=== PATIENT | male | born 2000 | race Caucasian/White ===

== ENCOUNTER 2022-08-02 15:38 | Emergency (ER) | payer OTHER, SELFPAY ==
[2022-08-02 15:45] VITALS: BP 133/73; PULSE 73; RESP 18; TEMP 37.1; O2SAT 99; BMI 27.8
--- NOTE | 2022-08-02 17:02 | CTR_ITS ---
PROCEDURE INFORMATION: Exam: CT Head Without Contrast Exam date and time: 08/02/2022 6:38 PM Age: 22 years old Clinical indication: Injury or trauma; Blunt trauma (contusions or hematomas); Without loss of consciousness; Injury details: Reports yesterday was climbing a tree yesterday and a branch broke, causing him to fall around 15-20 ft. PT landed on back. PT reports he lost his vision for a second but returned, otherwise denies loc, and initially had numbness to bilat fingertips hand fingers on right hand went blue. C/O pain to back, right shoulder, and neck, worse with movement. TECHNIQUE: Imaging protocol: Computed tomography of the head without contrast. Sagittal and coronal reformatted images were created and reviewed. Radiation optimization: All CT scans at this facility use at least one of these dose optimization techniques: automated exposure control; mA and/or kV adjustment per patient size (includes targeted exams where dose is matched to clinical indication); or iterative reconstruction. COMPARISON: No relevant prior studies available. RADIATION DOSE METRICS: Total DLP (mGy-cm): 1267.01 FINDINGS: Brain: No acute intracranial hemorrhage. No acute infarct. No intra-axial or extra-axial masses. No midline shift. No extra-axial fluid collections. Leavitt-white matter differentiation is unremarkable. No evidence for Chiari 1 malformation. Incidental note of a lola cisterna magna. Cerebral ventricles: No hydrocephalus. Incidental note of a cavum septum pellucidum and cavum septum vergae. Paranasal sinuses: Visualized paranasal sinuses are clear. Mastoid air cells: Visualized mastoid air cells are clear. Orbital cavities: Globes and lenses, extraocular muscles, and optic nerves are intact bilaterally. No acute intraorbital abnormality. Bones/joints: No acute fracture. Soft tissues: The extracranial soft tissues are unremarkable. CT/CT head wo con* [id number] IMPRESSION: 1. No acute abnormality of the brain. 2. Incidental/nonacute findings are listed in the report.
--- NOTE | 2022-08-02 17:02 | CTR_ITS ---
PROCEDURE INFORMATION: Exam: CT Chest With Contrast; Diagnostic Exam date and time: 08/02/2022 6:43 PM Age: 22 years old Clinical indication: Injury or trauma; Generalized; Blunt trauma (contusions or hematomas); Injury details: Reports yesterday was climbing a tree yesterday and a branch broke, causing him to fall around 15-20 ft. PT landed on back. PT reports he lost his vision for a second but returned, otherwise denies loc, and initially had numbness to bilat fingertips hand fingers on right hand went blue. C/O pain to back, right shoulder, middle finger of right hand, and neck, worse with movement. TECHNIQUE: Imaging protocol: Diagnostic computed tomography of the chest with contrast. Radiation optimization: All CT scans at this facility use at least one of these dose optimization techniques: automated exposure control; mA and/or kV adjustment per patient size (includes targeted exams where dose is matched to clinical indication); or iterative reconstruction. Contrast material: OMNI 350; Contrast volume: 100 ml; Contrast route: INTRAVENOUS (IV); COMPARISON: CT cervical spin wo con* [id number] 08/02/2022 6:40 PM RADIATION DOSE METRICS: Total DLP (mGy-cm): 1173.37 FINDINGS: Lungs: Unremarkable. No consolidation. No masses. Pleural spaces: Unremarkable. No pneumothorax. No pleural effusion. Heart: Unremarkable. No cardiomegaly. No pericardial effusion. Lymph nodes: Unremarkable. No enlarged lymph nodes. Vasculature: Unremarkable. No aortic aneurysm. Bones/joints: There is posterior displacement/subluxation of the right humeral head in relation to the glenoid fossa. There is no lv dislocation. Remaining osseous structures are unremarkable. There is no fracture detected. Soft tissues: Unremarkable. PROCEDURE INFORMATION: Exam: CT Abdomen And Pelvis With Contrast Exam date and time: 08/02/2022 6:43 PM Age: 22 years old Clinical indication: Injury or trauma; Generalized; Blunt trauma (contusions or hematomas); Injury details: Reports yesterday was climbing a tree yesterday and a branch broke, causing him to fall around 15-20 ft. PT landed on back. PT reports he lost his vision for a second but returned, otherwise denies loc, and initially had numbness to bilat fingertips hand fingers on right hand went blue. C/O pain to back, right shoulder, middle finger of right hand, and neck, worse with movement. TECHNIQUE: Imaging protocol: Computed tomography of the abdomen and pelvis with contrast. Radiation optimization: All CT scans at this facility use at least one of these dose optimization techniques: automated exposure control; mA and/or kV adjustment per patient size (includes targeted exams where dose is matched to clinical indication); or iterative reconstruction. Contrast material: OMNI 350; Contrast volume: 100 ml; Contrast route: INTRAVENOUS (IV); COMPARISON: CT abdomen pelvis w con* [id number] 08/27/2016 8:57 AM RADIATION DOSE METRICS: Total DLP (mGy-cm): 1173.37 FINDINGS: Lungs: Lung bases are clear. Liver: Normal. No mass. Gallbladder and bile ducts: Normal. No calcified stones. No ductal dilation. Pancreas: Normal. No ductal dilation. Spleen: Normal. No splenomegaly. Adrenal glands: Normal. No mass. Kidneys and ureters: Normal. No hydronephrosis. Stomach and bowel: Unremarkable. No obstruction. No mucosal thickening. Appendix: The appendix has been removed. Intraperitoneal space: Unremarkable. No free air. No significant fluid collection. Vasculature: Unremarkable. No abdominal aortic aneurysm. Lymph nodes: Unremarkable. No enlarged lymph nodes. Urinary bladder: Unremarkable as visualized. Reproductive: Unremarkable as visualized. Bones/joints: Unremarkable. No acute fracture. Soft tissues: Unremarkable. CT/CT chest abd pel w con* IMPRESSION: Posterior subluxation right shoulder which in view of patient's history is presumed posttraumatic in nature and raises possibility of underlying internal derangement which could be further assessed on MRI examination of the right shoulder. IMPRESSION: No acute findings within the abdomen or pelvis.
--- NOTE | 2022-08-02 17:02 | CTR_ITS ---
PROCEDURE INFORMATION: Exam: CT Cervical Spine Without Contrast Exam date and time: 08/02/2022 6:40 PM Age: 22 years old Clinical indication: Injury or trauma; Blunt trauma; Injury details: Reports yesterday was climbing a tree yesterday and a branch broke, causing him to fall around 15-20 ft. PT landed on back. PT reports he lost his vision for a second but returned, otherwise denies loc, and initially had numbness to bilat fingertips hand fingers on right hand went blue. C/O pain to back, right shoulder, middle finger of right hand, and neck, worse with movement. TECHNIQUE: Imaging protocol: Computed tomography of the cervical spine without contrast. Sagittal and coronal reformatted images were created and reviewed. Radiation optimization: All CT scans at this facility use at least one of these dose optimization techniques: automated exposure control; mA and/or kV adjustment per patient size (includes targeted exams where dose is matched to clinical indication); or iterative reconstruction. COMPARISON: No relevant prior studies available. RADIATION DOSE METRICS: Total DLP (mGy-cm): 569.97 FINDINGS: Bones/joints: Vertebral body height is maintained. No subluxation. Normal bone mineralization. Reversal of normal cervical lordosis. No evidence for an epidural hematoma. No acute fracture. Lungs: Visualized lungs are clear. Soft tissues: No soft tissue swelling. No radiopaque foreign body. CT/CT cervical spin wo con* [id number] IMPRESSION: 1. No acute fracture of the cervical spine. 2. Incidental/nonacute findings are listed in the report.
--- NOTE | 2022-08-02 17:13 | ED_ITS ---
Documented by User: Pee Maldonado DO 08/02/22 17:58 HPI - Trauma General: Chief Complaint: Trauma Stated Complaint: fell out of tree Time Seen by Provider: 08/02/22 16:49 History of Present Illness: 22-year-old male presents emergency room after falling out of a tree nearly 24 hours ago. He estimates he fell 15 to 20 feet landed on his back he says he briefly lost his vision but did not resolved. No real loss of consciousness. He had some numbness bilaterally to his fingers and he states his fingers went below he is complaining mostly of back pain right shoulder pain right third finger pain and neck pain. He has an abrasion to his right ankle. He has been ambulatory today has been very stiff. MD complaint: fall Onset (ago): day(s) (1) Loss of Consciousness: no Location: head and back Location - Extremities: Right: shoulder and hand Severity: moderate Context: fall (Proximal fall 15 to 20 feet out of a tree landing on his back he did break his fall and of the limbs as he fell) Associated symptoms: Reports back pain; Denies abdominal pain, anorexia, chest pain, chills, confusion, cough, dental pain, diaphoresis, difficulty breathing, dizziness, epistaxis, fever(s), headache(s), nausea, seizures, short of breath, syncope, visual disturbances, vomiting or weakness Review of Systems Const: Reports: body aches; Denies: fever(s), chills or diaphoresis ENMT: Denies: dental pain or epistaxis Card: Denies: chest pain or syncope Resp: Denies: dyspnea, productive cough or non-productive cough GI: Denies: abdominal pain, nausea or vomiting : Denies: flank pain, dysuria, urinary frequency or urinary urgency Musc: Reports: back pain and extremity pain Skin/Breast: Denies: rash or pruritus Neuro: Denies: headache(s), dizziness or confusion PFS ED PFSH: Medical History (Updated 08/02/22 @ 20:11 by Scooter Whitten DO) No significant past medical history Surgical History (Updated 08/02/22 @ 17:51 by Pee Maldonado DO) No pertinent past surgical history Physical Exam Const: COMMON NORMALS: no acute distress GENERAL APPEARANCE: cooperative and comfortable ORIENTATION/CONSCIOUSNESS: Yes awake, Yes oriented to person, Yes oriented to place and Yes oriented to time HENMT: COMMON NORMALS: normocephalic, atraumatic, hearing grossly normal bilaterally, external ears normal, EAC's normal, TM's normal bilaterally, Normal nasal mucous membranes and turbinates present, moist oral mucous membranes and oropharynx normal HEAD & SCALP: normocephalic and atraumatic NOSE: Normal nasal mucous membranes and turbinates present EXTERNAL EAR: Yes external ears normal EXTERNAL AUDITORY CANAL: EAC's normal TYMPANIC MEMBRANE: TM's normal bilaterally Eye: COMMON NORMALS: Equal, round and reactive pupils present, EOMs intact bilaterally, conjunctivae normal and no scleral icterus CONJUNCTIVA: Yes conjunctivae normal PUPIL: Yes Equal, round and reactive pupils present Neck/C-Spine: COMMON NORMALS: full ROM, no lymphadenopathy, supple and no JVD Lymph: LYMPHATIC: no lymphadenopathy noted and no lymphedema noted Resp: COMMON NORMALS: normal respiratory effort, No retractions, No use of accessory muscles and clear to auscultation bilaterally AUSCULTATION: clear to auscultation bilaterally Cardio: COMMON NORMALS: no JVD, regular rate, regular rhythm and No murmurs present (Cardio) RATE: regular rate RHYTHM: regular rhythm GI: COMMON NORMALS: Soft to palpation and No hepatosplenomegaly present AUSCULTATION: Yes normoactive bowel sounds PALPATION: Yes Soft to palpation, No Tenderness to palpation present (GI), No Guarding due to palpation present (GI) and Yes No hepatosplenomegaly present Extremity: COMMON NORMALS: normal to inspection, capillary refill normal, no clubbing, cyanosis or edema, no calf tenderness and no pedal edema Neuro: SENSORIUM/ORIENTATION: Yes oriented to person, Yes oriented to place and Yes oriented to time Skin: COMMON NORMALS: no rashes or lesions noted GENERAL SKIN EXAM: no rashes or lesions noted Course Vital Signs: Vital signs: Vital Signs Temperature 98.8 F 08/02/22 15:45 Pulse Rate 100 08/02/22 17:40 Respiratory Rate 14 08/02/22 17:40 Blood Pressure 136/82 08/02/22 17:40 Pulse Oximetry 100 08/02/22 17:40 Oxygen Delivery Me thod 08/02/22 17:40 MDM - Trauma Medical Decision Making Care signed out to Dr. Whitten at change of shift. See final notes for diagnosis and disposition. Lab Data 08/02/22 18:18 08/02/22 18:18 Radiology Impressions Cervical Spine CT 08/02/22 17:02 IMPRESSION: 1. No acute fracture of the cervical spine. 2. Incidental/nonacute findings are listed in the report. Chest/Abdomen/Pelvis CT 08/02/22 17:02 IMPRESSION: Posterior subluxation right shoulder which in view of patient's history is presumed posttraumatic in nature and raises possibility of underlying internal derangement which could be further assessed on MRI examination of the right shoulder. IMPRESSION: No acute findings within the abdomen or pelvis. Head CT 08/02/22 17:02 IMPRESSION: 1. No acute abnormality of the brain. 2. Incidental/nonacute findings are listed in the report. Hand X-Ray 08/02/22 17:14 IMPRESSION: Negative radiographs of the right hand. Followup imaging recommended in 7-14 days if clinical concern for fracture persists. Shoulder X-Ray 08/02/22 17:14 IMPRESSION: No acute fracture of the right shoulder. Followup imaging recommended in 7-14 days if clinical concern for fracture persists. Laboratory Results WBC 6.3 10^3/uL (4.0-10.0) 08/02/22 18:18 RBC 5.27 10^6/uL (4.1-5.3) 08/02/22 18:18 Hgb 16.2 g/dL (11.7-16.6) 08/02/22 18:18 Hct 48.5 % (42.0-52.0) 08/02/22 18:18 MCV 92.0 fl (80-94) 08/02/22 18:18 MCH 30.7 pg (28.0-34.0) 08/02/22 18:18 MCHC 33.4 g/dL (30.0-36.0) 08/02/22 18:18 RDW 12.1 % (12.1-15.1) 08/02/22 18:18 Plt Count 234 10^3/cmm (130-400) 08/02/22 18:18 MPV 10.8 fL (7.4-10.4) H 08/02/22 18:18 Neut % (Auto) 66.3 % 08/02/22 18:18 Lymph % (Auto) 24.0 % 08/02/22 18:18 Lam[place] % (Auto) 6.2 % 08/02/22 18:18 Eos % (Auto) 2.6 % 08/02/22 18:18 Baso % (Auto) 0.6 % 08/02/22 18:18 Neut # (Auto) 4.15 10^3/uL (1.8-7.7) 08/02/22 18:18 Lymph # (Auto) 1.5 10^3/uL (0.8-4.8) 08/02/22 18:18 [place] # (Auto) 0.4 10^3/uL (0.2-0.9) 08/02/22 18:18 Eos # (Auto) 0.2 10^3/uL (0.0-0.8) 08/02/22 18:18 Baso # (Auto) 0.0 10^3/uL (0.0-0.1) 08/02/22 18:18 Nucleated RBC % (auto) 0 % 08/02/22 18:18 Nucleated RBCs # 0.0 /100WBC 08/02/22 18:18 Sodium 136 mmol/L (136-145) 08/02/22 18:18 Potassium 4.5 mmol/L (3.5-5.1) 08/02/22 18:18 Chloride 101 mmol/L (98-107) 08/02/22 18:18 Carbon Dioxide 26 mmol/L (22-29) 08/02/22 18:18 Anion Gap 13.5 (5-19) 08/02/22 18:18 BUN 9 mg/dL (6-20) 08/02/22 18:18 Creatinine 0.7 mg/dL (0.7-1.2) 08/02/22 18:18 GFR Calculation 138.6 mL/min (90-130) H 08/02/22 18:18 Glucose 109 mg/dL (65-115) 08/02/22 18:18 Calculated Osmolality 281 mOsm/kg (285-295) L 08/02/22 18:18 Calcium 9.2 mg/dL (8.5-10.5) 08/02/22 18:18 Total Bilirubin 0.5 mg/dL (0.15-1.2) 08/02/22 18:18 AST 47 U/L (0-40) H 08/02/22 18:18 ALT 77 U/L (0-41) H 08/02/22 18:18 Alkaline Phosphatase 82 U/L (40-130) 08/02/22 18:18 Total Protein 7.4 g/dL (6.6-8.7) 08/02/22 18:18 Albumin 4.6 g/dL (3.5-5.2) 08/02/22 18:18 Globulin 2.8 g/dL (1.3-4.6) 08/02/22 18:18 Urine Color Yellow (Yellow) 08/02/22 17:34 Urine Appearance Clear (CLEAR) 08/02/22 17:34 Urine pH 6 (5-7) 08/02/22 17:34 Ur Specific [place] 1.020 (1.005-1.030) 08/02/22 17:34 Urine Protein Neg (Negative) 08/02/22 17:34 Urine Glucose (UA) Norm (Normal) 08/02/22 17:34 Urine Ketones Negative (Negative) 08/02/22 17:34 Urine Blood Neg (Negative) 08/02/22 17:34 Urine Nitrate Negative (Negative) 08/02/22 17:34 Urine Bilirubin Neg (Negative) 08/02/22 17:34 Urine Urobilinogen Neg mg/dL (Negative) 08/02/22 17:34 Ur Leukocyte Esterase Negative (Negative) 08/02/22 17:34 Discharge Plan Discharge Patient Disposition: Home Clinical Impression: Contusion of right shoulder region Condition: Stable Prescriptions: New ketorolac 10 mg tablet 10 mg PO TID PRN (Reason: pain) Qty: 10 0RF Discharge Orders: Discharge ED (Routine); Ordered 08/02/22 Ordered By: Scooter Whitten Referrals: Michael Christy DO [Physician] - Patient Instructions: Shoulder Pain (ED), Opioid Safety, Pain Management Activity Restrictions/Additional Instructions: Our rn case manager will make you an appointment for orthopedics. You should get a call from her early this coming week. Return for problems in the meantime. Ice may help. He will be provided a sling for shoulder discomfort, only to be worn for the next few days until you are seen. Stand Alone Forms: Work/School Release Coding Level of Care Code ED Welder Apprentice Combination for Jose Lg Fwd Exam Comprehensive Documented by User: Scooter Whitten DO 08/03/22 05:38 HPI - Trauma General: Chief Complaint: Trauma Stated Complaint: fell out of tree Time Seen by Provider: 08/02/22 16:49 PFSH ED PFSH: Medical History (Updated 08/02/22 @ 20:11 by Scooter Whitten DO) No significant past medical history Surgical History (Updated 08/02/22 @ 17:51 by Pee Maldonado DO) No pertinent past surgical history Course Vital Signs: Vital signs: Vital Signs Temperature 98.8 F 08/02/22 15:45 Pulse Rate 100 08/02/22 17:40 Respiratory Rate 14 08/02/22 17:40 Blood Pressure 136/82 08/02/22 17:40 Pulse Oximetry 100 08/02/22 17:40 Oxygen Delivery Me thod 08/02/22 17:40 MDM - Trauma Medical Decision Making Care signed out to Dr. Whitten at change of shift. See final notes for diagnosis and disposition. Received in checkout from the previous physician at shift change. CBC and BMP are not remarkable. CTs of the head and cervical spine are negative. CT of the chest abdomen pelvis shows some posterior subluxation of the right shoulder that would be presumed posttraumatic by history. He is placed in a sling. To follow-up with orthopedics. On visiting them with the patient, I found out he is from [place] visiting family. He will follow-up with orthopedics there most likely, Lab Data 08/02/22 18:18 08/02/22 18:18 Radiology Impressions Cervical Spine CT 08/02/22 17:02 IMPRESSION: 1. No acute fracture of the cervical spine. 2. Incidental/nonacute findings are listed in the report. Chest/Abdomen/Pelvis CT 08/02/22 17:02 IMPRESSION: Posterior subluxation right shoulder which in view of patient's history is presumed posttraumatic in nature and raises possibility of underlying internal derangement which could be further assessed on MRI examination of the right shoulder. IMPRESSION: No acute findings within the abdomen or pelvis. Head CT 08/02/22 17:02 IMPRESSION: 1. No acute abnormality of the brain. 2. Incidental/nonacute findings are listed in the report. Hand X-Ray 08/02/22 17:14 IMPRESSION: Negative radiographs of the right hand. Followup imaging recommended in 7-14 days if clinical concern for fracture persists. Shoulder X-Ray 08/02/22 17:14 IMPRESSION: No acute fracture of the right shoulder. Followup imaging recommended in 7-14 days if clinical concern for fracture persists. Laboratory Results WBC 6.3 10^3/uL (4.0-10.0) 08/02/22 18:18 RBC 5.27 10^6/uL (4.1-5.3) 08/02/22 18:18 Hgb 16.2 g/dL (11.7-16.6) 08/02/22 18:18 Hct 48.5 % (42.0-52.0) 08/02/22 18:18 MCV 92.0 fl (80-94) 08/02/22 18:18 MCH 30.7 pg (28.0-34.0) 08/02/22 18:18 MCHC 33.4 g/dL (30.0-36.0) 08/02/22 18:18 RDW 12.1 % (12.1-15.1) 08/02/22 18:18 Plt Count 234 10^3/cmm (130-400) 08/02/22 18:18 MPV 10.8 fL (7.4-10.4) H 08/02/22 18:18 Neut % (Auto) 66.3 % 08/02/22 18:18 Lymph % (Auto) 24.0 % 08/02/22 18:18 [place] % (Auto) 6.2 % 08/02/22 18:18 Eos % (Auto) 2.6 % 08/02/22 18:18 Baso % (Auto) 0.6 % 08/02/22 18:18 Neut # (Auto) 4.15 10^3/uL (1.8-7.7) 08/02/22 18:18 Lymph # (Auto) 1.5 10^3/uL (0.8-4.8) 08/02/22 18:18 [place] # (Auto) 0.4 10^3/uL (0.2-0.9) 08/02/22 18:18 Eos # (Auto) 0.2 10^3/uL (0.0-0.8) 08/02/22 18:18 Baso # (Auto) 0.0 10^3/uL (0.0-0.1) 08/02/22 18:18 Nucleated RBC % (auto) 0 % 08/02/22 18:18 Nucleated RBCs # 0.0 /100WBC 08/02/22 18:18 Sodium 136 mmol/L (136-145) 08/02/22 18:18 Potassium 4.5 mmol/L (3.5-5.1) 08/02/22 18:18 Chloride 101 mmol/L (98-107) 08/02/22 18:18 Carbon Dioxide 26 mmol/L (22-29) 08/02/22 18:18 Anion Gap 13.5 (5-19) 08/02/22 18:18 BUN 9 mg/dL (6-20) 08/02/22 18:18 Creatinine 0.7 mg/dL (0.7-1.2) 08/02/22 18:18 GFR Calculation 138.6 mL/min (90-130) H 08/02/22 18:18 Glucose 109 mg/dL (65-115) 08/02/22 18:18 Calculated Osmolality 281 mOsm/kg (285-295) L 08/02/22 18:18 Calcium 9.2 mg/dL (8.5-10.5) 08/02/22 18:18 Total Bilirubin 0.5 mg/dL (0.15-1.2) 08/02/22 18:18 AST 47 U/L (0-40) H 08/02/22 18:18 ALT 77 U/L (0-41) H 08/02/22 18:18 Alkaline Phosphatase 82 U/L (40-130) 08/02/22 18:18 Total Protein 7.4 g/dL (6.6-8.7) 08/02/22 18:18 Albumin 4.6 g/dL (3.5-5.2) 08/02/22 18:18 Globulin 2.8 g/dL (1.3-4.6) 08/02/22 18:18 Urine Color Yellow (Yellow) 08/02/22 17:34 Urine Appearance Clear (CLEAR) 08/02/22 17:34 Urine pH 6 (5-7) 08/02/22 17:34 Ur Specific [place] 1.020 (1.005-1.030) 08/02/22 17:34 Urine Protein Neg (Negative) 08/02/22 17:34 Urine Glucose (UA) Norm (Normal) 08/02/22 17:34 Urine Ketones Negative (Negative) 08/02/22 17:34 Urine Blood Neg (Negative) 08/02/22 17:34 Urine Nitrate Negative (Negative) 08/02/22 17:34 Urine Bilirubin Neg (Negative) 08/02/22 17:34 Urine Urobilinogen Neg mg/dL (Negative) 08/02/22 17:34 Ur Leukocyte Esterase Negative (Negative) 08/02/22 17:34 Discharge Plan Discharge Patient Disposition: Home Clinical Impression: Contusion of right shoulder region Condition: Stable Prescriptions: New ketorolac 10 mg tablet 10 mg PO TID PRN (Reason: pain) Qty: 10 0RF Discharge Orders: Discharge ED (Routine); Ordered 08/02/22 Ordered By: Scooter Whitten Referrals: Michael Christy DO [Physician] - Patient Instructions: Shoulder Pain (ED), Opioid Safety, Pain Management Activity Restrictions/Additional Instructions: Our rn case manager will make you an appointment for orthopedics. You should get a call from her early this coming week. Return for problems in the meantime. Ice may help. He will be provided a sling for shoulder discomfort, only to be worn for the next few days until you are seen. Stand Alone Forms: Work/School Release Coding Level of Care Code ED Welder Apprentice Combination for Ramona Fwd Exam Comprehensive
--- NOTE | 2022-08-02 17:14 | XRR_ITS ---
PROCEDURE INFORMATION: Exam: XR Right Shoulder Exam date and time: 08/02/2022 5:21 PM Age: 22 years old Clinical indication: Injury or trauma; Fall; Blunt trauma (contusions or hematomas); Shoulder; Right TECHNIQUE: Imaging protocol: Radiologic exam of the Right shoulder. Views: 2 or more views. COMPARISON: No relevant prior studies available. FINDINGS: Bones/joints: No acute fracture. No dislocation. Normal bone mineralization. No joint effusion. Joint spaces are maintained. Lungs: Visualized lungs are clear. Soft tissues: No soft tissue swelling. No radiopaque foreign body. XR/XR shoulder RT min 2V* [id number] IMPRESSION: No acute fracture of the right shoulder. Followup imaging recommended in 7-14 days if clinical concern for fracture persists.
--- NOTE | 2022-08-02 17:14 | XRR_ITS ---
PROCEDURE INFORMATION: Exam: XR Right Hand Exam date and time: 08/02/2022 5:22 PM Age: 22 years old Clinical indication: Injury or trauma; Fall; Blunt trauma (contusions or hematomas); Hand; Right TECHNIQUE: Imaging protocol: Radiologic exam of the Right hand. Views: 3 or more views. COMPARISON: No relevant prior studies available. FINDINGS: Bones/joints: No acute fracture. No dislocation. Normal bone mineralization. No joint effusion. Joint spaces are maintained. Soft tissues: No soft tissue swelling. No radiopaque foreign body. XR/XR hand RT min 3V* [id number] IMPRESSION: Negative radiographs of the right hand. Followup imaging recommended in 7-14 days if clinical concern for fracture persists.
[2022-08-02 17:40] VITALS: BP 136/82; PULSE 100; RESP 14; O2SAT 100
[2022-08-02 18:04] LABS: Add Urine Microscopic? NO; Charge for UA Resulting for Rev
[2022-08-02 18:27] LABS: Bilirubin Urine Neg (Negative); Blood Urine Neg (Negative); Glucose Urine UA Norm (Normal); Ketones Urine Negative (Negative); Leukocyte Esterase Urine Negative (Negative); Nitrate Urine Negative (Negative); Protein Urine Neg (Negative); Urine Appearance Clear (CLEAR); Urine Color Yellow (Yellow); Urobilinogen Urine Neg (Negative); pH Urine 6 (5-7)
[2022-08-02] MEDS: iohexol 350 mg/mL 500 mL Btl (per mL) IV (18:38)
[2022-08-02 18:54] LABS: Basophils % 0.6 %; Eosinophils # 0.2 10^3/uL (0.0-0.8); Eosinophils % 2.6 %; Hematocrit 48.5 % (42.0-52.0); Hemoglobin 16.2 g/dL (11.7-16.6); Lymphocytes # 1.5 10^3/uL (0.8-4.8); Mean Corpuscular HGB Conc 33.4 g/dL (30.0-36.0); Mean Corpuscular Hemoglobin 30.7 pg (28.0-34.0); Mean Platelet Volume 10.8 fL (7.4-10.4); Monocytes # 0.4 10^3/uL (0.2-0.9); Monocytes % 6.2 %; Neutrophils # 4.15 10^3/uL (1.8-7.7); Neutrophils % 66.3 %; Nucleated Red Blood Cells % 0 %; Platelet Count 234 10^3/cmm (130-400); Red Blood Count 5.27 10^6/uL (4.1-5.3); Red Cell Distribution Width 12.1 % (12.1-15.1); White Blood Count 6.3 10^3/uL (4.0-10.0)
[2022-08-02 19:05] LABS: Albumin Level 4.6 g/dL (3.5-5.2); Alkaline Phosphatase 82 U/L (40-130); Blood Urea Nitrogen 9 mg/dL (6-20); Calcium 9.2 mg/dL (8.5-10.5); Carbon Dioxide 26 mmol/L (22-29); Chloride 101 mmol/L (98-107); Globulin 2.8 g/dL (1.3-4.6); Glomerular Filtration Rate 138.6 mL/min (90-130); Glucose 109 mg/dL (65-115); Osmolality Calculated 281 mOsm/kg (285-295); Sodium 136 mmol/L (136-145); Total Bilirubin 0.5 mg/dL (0.15-1.2); Total Protein 7.4 g/dL (6.6-8.7)
[2022-08-02] MEDS: tetanus-dipt-pertussis 0.5 mL SDV IM (19:06)
[2022-08-02 19:07] LABS: Alanine Aminotransferase 77 U/L (0-41); Anion Gap 13.5 (5-19); Aspartate Amino Transferase 47 U/L (0-40); Potassium 4.5 mmol/L (3.5-5.1)
== END 2022-08-02 20:44 | disposition home or self-care (01) ==
PROVIDERS: Family Medicine; Emergency Provider Emergency Medicine
DX: S40.011A Contusion of right shoulder, initial encounter (principal); W14.XXXA Fall from tree, initial encounter; Z23 Encounter for immunization
CPT/HCPCS: 36415; 70450; 71260; 72125; 73030; 73130; 74177; 80053; 81003; 85025; 90471; 90715; 99285; Q9967